=== PATIENT | male | born 1960 | race Caucasian/White ===

== ENCOUNTER 2018-01-08 10:35 | Emergency (ER) | payer SELFPAY ==
[2018-01-08] MEDS ORDERED: ASPIRIN 81 MG TABLET, CHEWABLE PO ONE (11:23)
--- NOTE | 2018-01-08 11:23 | ER Document Report ---
ED Medical Screen (RME) - General Chief Complaint: Shoulder Pain Stated Complaint: SHOULDER PAIN Time Seen by Provider: 01/08/18 11:11 Mode of Arrival: Ambulatory Information source: Patient Notes: Patient presents complaining of left axillary pain for the past 3 days. Patient states yesterday his pain went into his chest area. Patient denies any injury to the shoulder. Patient states that movement of the shoulder joint does not reproduce his pain symptoms. Patient's states that patient never goes to the doctor I have greeted and performed a rapid initial assessment of this patient. A comprehensive ED assessment and evaluation of the patient, analysis of test results and completion of the medical decision making process will be conducted by additional ED providers. TRAVEL OUTSIDE OF THE [place] IN LAST 30 DAYS: No Past Medical History Renal/ Medical History: Denies: Hx Peritoneal Dialysis Physical Exam - Vital signs Vitals: Temp Pulse Resp BP Pulse Ox 98.3 F 78 20 170/117 H 98 01/08/18 10:49 01/08/18 10:49 01/08/18 10:49 01/08/18 10:49 01/08/18 10:49 - Cardiovascular Rhythm: Regular Heart sounds: S1 appreciated, S2 appreciated - Extremities General upper extremity: Normal inspection, Nontender, Normal ROM Course - Vital Signs Vital signs: Temp Pulse Resp BP Pulse Ox 98.3 F 78 20 170/117 H 98 01/08/18 10:49 01/08/18 10:49 01/08/18 10:49 01/08/18 10:49 01/08/18 10:49
--- NOTE | 2018-01-08 12:05 | RADIOLOGY REPORT (SQ) ---
EXAM DESCRIPTION: CHEST 2 VIEWS COMPLETED DATE/TIME: 01/08/2018 11:54 am REASON FOR STUDY: L axillary, cp COMPARISON: None. EXAM PARAMETERS: NUMBER OF VIEWS: two views TECHNIQUE: Digital Frontal and Lateral radiographic views of the chest acquired. RADIATION DOSE: NA LIMITATIONS: none FINDINGS: LUNGS AND PLEURA: No opacities, masses or pneumothorax. No pleural effusion. MEDIASTINUM AND HILAR STRUCTURES: No masses or contour abnormalities. HEART AND VASCULAR STRUCTURES: Heart normal size. No evidence for failure. BONES: No acute findings. HARDWARE: None in the chest. OTHER: No other significant finding. IMPRESSION: NO ACUTE RADIOGRAPHIC FINDING IN THE CHEST. TECHNICAL DOCUMENTATION: JOB ID: [id number] [employer]- All Rights Reserved Reading location - IP/workstation name: [email or web address]
[2018-01-08] MEDS ORDERED: MORPHINE SULFATE 10 MG/ML INJ IV ONE (12:11)
[2018-01-08] MEDS ORDERED: DIAZEPAM 5 MG TABLET PO ONE (12:13)
[2018-01-08] MEDS ORDERED: PREDNISONE 20 MG TABLET PO ONE (12:13)
--- NOTE | 2018-01-08 12:14 | ER Document Report ---
ED General - General Chief Complaint: Chest Pain Stated Complaint: SHOULDER PAIN Time Seen by Provider: 01/08/18 11:11 Mode of Arrival: Ambulatory Information source: Patient, Relative Notes: 57-year-old male with no reported past medical history presents with complaint of left arm pain and left-sided chest pain. Patient states that left arm pain started 3 days prior to arrival. Pain is located in his axilla, described as a sharp throbbing pain that radiates into his chest. Patient states the pain has been constant for 3 days and he has been unable to sleep. Patient states that pain is relieved when he lifts his arm over his head. He has tried Tylenol and Motrin without relief. He denies any prior similar symptoms. 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 Patient does not currently take any medications. He does not smoke tobacco but admits to marijuana use. TRAVEL OUTSIDE OF THE [place] IN LAST 30 DAYS: No Past Medical History - General Information source: Patient - Social History Smoking Status: Never Smoker Frequency of alcohol use: None Drug Abuse: Marijuana Lives with: Spouse/Significant other Family History: Reviewed & Not Pertinent Patient has suicidal ideation: No Patient has homicidal ideation: No - Medical History Medical History: Negative Renal/ Medical History: Denies: Hx Peritoneal Dialysis Review of Systems - Review of Systems Notes: REVIEW OF SYSTEMS: CONSTITUTIONAL : Denies fever, chills, or sweats. Denies recent illness. Denies weight loss, recent hospitalizations. EENT: Denies visual changes, eye pain. Denies nasal or sinus congestion or discharge. Denies sore throat, oral lesions, difficulty swallowing. CARDIOVASCULAR: . Denies palpitations. Denies lower extremity edema. RESPIRATORY: Denies cough, cold, or chest congestion. Denies shortness of breath, wheezing. GASTROINTESTINAL: Denies abdominal pain or distention. Denies nausea, vomiting , or diarrhea. Denies blood in vomitus, stools, or per rectum. Denies black, tarry stools. Denies constipation. GENITOURINARY: Denies difficulty urinating, painful urination, frequency, blood in urine, or vaginal discharge. MUSCULOSKELETAL: Denies back or neck pain or stiffness. Denies joint pain or swelling. SKIN: Denies rash, lesions or sores. HEMATOLOGIC : Denies easy bruising or bleeding. LYMPHATIC: Denies swollen glands. NEUROLOGICAL: Denies confusion or altered mental status. Denies passing out or loss of consciousness. Denies dizziness or lightheadedness. Denies headache. Denies weakness or paralysis. Denies problems difficulty with ambulation, slurred speech. Denies sensory loss, numbness, or tingling. Denies seizures. PSYCHIATRIC: Denies anxiety or stress. Denies depression, suicidal ideation, or homicidal ideation. Denies visual or auditory hallucinations. Physical Exam - Vital signs Vitals: Temp Pulse Resp BP Pulse Ox 98.3 F 78 20 170/117 H 98 01/08/18 10:49 01/08/18 10:49 01/08/18 10:49 01/08/18 10:49 01/08/18 10:49 - Notes Notes: PHYSICAL EXAMINATION: GENERAL: Well-appearing, well-nourished and in no acute distress. HEAD: Atraumatic, normocephalic. EYES: Pupils equal round and reactive to light, extraocular movements intact, sclera anicteric, conjunctiva are normal. ENT: Nares patent, oropharynx clear without exudates. Moist mucous membranes. NECK: Normal range of motion, supple without lymphadenopathy LUNGS: Breath sounds clear to auscultation bilaterally and equal. No wheezes rales or rhonchi. HEART: Regular rate and rhythm without murmurs ABDOMEN: Soft, nontender, nondistended abdomen. No guarding, no rebound. No masses appreciated. Musculoskeletal: Normal range of motion, no pitting or edema. No cyanosis. Pain with palpation to the left axilla. Pain with range of motion of the left shoulder. No neuro deficits NEUROLOGICAL: Cranial nerves grossly intact. Normal speech, normal gait. Normal sensory, motor exams PSYCH: Normal mood, normal affect. SKIN: Warm, Dry, normal turgor, no rashes or lesions noted. Course - Re-evaluation Re-evalutation: Laboratory 01/08/18 01/08/18 01/08/18 11:50 11:50 11:50 WBC 9.7 RBC 5.15 Hgb 17.3 H Hct 50.3 MCV 98 H MCH 33.6 H MCHC 34.4 RDW 14.0 Plt Count 271 Seg Neutrophils % 54.7 Lymphocytes % 35.5 Monocytes % 8.1 Eosinophils % 1.1 Basophils % 0.6 Absolute Neutrophils 5.3 Absolute Lymphocytes 3.4 Absolute Monocytes 0.8 Absolute Eosinophils 0.1 Absolute Basophils 0.1 Sodium 144.1 Potassium 4.4 Chloride 107 Carbon Dioxide 22 Anion Gap 15 BUN 17 Creatinine 0.83 Est GFR ( Amer) > 60 Est GFR (Non-Af Amer) > 60 Glucose 149 H Calcium 10.5 H Total Bilirubin 1.6 H Direct Bilirubin 0.3 Neonat Total Bilirubin Not Reportable Neonat Direct Bilirubin Not Reportable Neonat Indirect Bili Not Reportable AST 23 ALT 22 Alkaline Phosphatase 59 Troponin I < 0.012 Total Protein 7.9 Albumin 4.9 Chest X-Ray 01/08/18 11:22 IMPRESSION: NO ACUTE RADIOGRAPHIC FINDING IN THE CHEST. 01/08/18 16:38 57-year-old male with no reported past medical history presents with complaint of left arm pain and left-sided chest pain. Patient states that left arm pain started 3 days prior to arrival. Pain is located in his axilla, described as a sharp throbbing pain that radiates into his chest. Patient states the pain has been constant for 3 days and he has been unable to sleep. Patient states that pain is relieved when he lifts his arm over his head. Upon arrival vitals reviewed, patient is afebrile, hypertensive. Patient does not appear toxic or dehydrated. He is in no acute distress. Pain is reproducible with palpation to his left axilla and range of motion of the left arm. EKG was obtained which showed the patient be in normal sinus rhythm. CBC is without leukocytosis or anemia. MP is without electrolyte abnormality and normal kidney function. Chest x-ray showed no acute process. Cardiac enzymes within normal limits. Heart score 2. Patient provided the opportunity to ask questions, and express concerns. Discharge instructions discussed. Patient is agreeable with discharge home. Return indications explained and discussed with the patient who displays understanding. Patient encouraged to return to the emergency department immediately with any concerns. After performing a Medical Screening Examination, I estimate there is LOW risk for RUPTURED ESOPHAGUS, PNEUMOTHORAX, PULMONARY EMBOLISM, ACUTE CORONARY SYNDROME, OR THORACIC AORTIC DISSECTION, thus I consider the discharge disposition reasonable. I have reevaluated this patient multiple times and no significant life threatening changes are noted. The patient and I have discussed the diagnosis and risks, and we agree with discharging home with close follow-up. We also discussed returning to the Emergency Department immediately if new or worsening symptoms occur. We have discussed the symptoms which are most concerning (e.g., bloody sputum, worsening pain or shortness of breath) that necessitate immediate return. - Vital Signs Vital signs: Temp Pulse Resp BP Pulse Ox 98.3 F 78 12 168/94 H 94 01/08/18 10:49 01/08/18 10:49 01/08/18 13:44 01/08/18 14:18 01/08/18 13:44 - Laboratory Result Diagrams: 01/08/18 11:50 01/08/18 11:50 Laboratory results interpreted by me: 01/08/18 01/08/18 11:50 11:50 Hgb 17.3 H MCV 98 H MCH 33.6 H Glucose 149 H Calcium 10.5 H Total Bilirubin 1.6 H - Diagnostic Test Radiology reviewed: Image reviewed, Reports reviewed - EKG Interpretation by Me EKG shows normal: Sinus rhythm Rate: Normal Rhythm: NSR When compared to previous EKG there are: Previous EKG unavailable Discharge - Discharge Clinical Impression: Left axillary pain, Chest wall pain, Elevated blood pressure reading Condition: Good Disposition: HOME, SELF-CARE Instructions: Arm Pain, Nonspecific ([facility]), Chest Wall Pain ([facility]) Additional Instructions: Follow up with your physician tomorrow for further care or return to the ED IMMEDIATELY if symptoms worsen or new concerns occur. If you cannot afford to follow up with your primary care physician a list of low cost clinics have been provided at the end of your discharge papers as well. Prescriptions: Hydrocodone/Acetaminophen [[place] 5-325 mg Tablet] 1 tab PO Q6H #15 tablet Ibuprofen [Motrin 600 Mg Tablet] 600 mg PO TID #15 tablet Prednisone 60 mg PO DAILY #15 tablet Forms: Elevated Blood Pressure
[2018-01-08 12:18] LABS: ABSOLUTE BASOPHILS # (AUTO) 0.1 10^3/uL (0.0-0.2); ABSOLUTE EOSINOPHILS # (AUTO) 0.1 10^3/uL (0.0-0.6); ABSOLUTE LYMPHOCYTES (AUTO) 3.4 10^3/uL (0.5-4.7); ABSOLUTE MONOCYTES (AUTO) 0.8 10^3/uL (0.1-1.4); ABSOLUTE NEUT (AUTO) 5.3 10^3/uL (1.7-8.2); BASOPHILS % (AUTO) 0.6 % (0-2); EOSINOPHILS % (AUTO) 1.1 % (0-6); HEMATOCRIT 50.3 % (37.9-51.0); HEMOGLOBIN 17.3 g/dL (13.5-17.0); LYMPHOCYTES % (AUTO) 35.5 % (13-45); MEAN CORPUSCULAR HEMOGLOBIN 33.6 pg (27.0-33.4); MEAN CORPUSCULAR HGB CONC 34.4 g/dL (32.0-36.0); MEAN CORPUSCULAR VOLUME 98 fl (80-97); MONOCYTES % (AUTO) 8.1 % (3-13); PLATELET COUNT 271 10^3/uL (150-450); RED BLOOD COUNT 5.15 10^6/uL (4.35-5.55); SEGMENTED NEUTROPHILS % (AUTO) 54.7 % (42-78); TOTAL CELLS COUNTED % (AUTO) 100 %; WHITE BLOOD COUNT 9.7 10^3/uL (4.0-10.5)
[2018-01-08 12:27] LABS: ALANINE AMINOTRANSFERASE 22 U/L (21-72); ALBUMIN 4.9 g/dL (3.5-5.0); ALKALINE PHOSPHATASE 59 U/L (38-126); ANION GAP 15 (5-19); ASPARTATE AMINO TRANSFERASE 23 U/L (17-59); BILIRUBIN,DIRECT 0.3 mg/dL (0.0-0.4); BILIRUBIN,TOTAL 1.6 mg/dL (0.2-1.3); BLOOD UREA NITROGEN 17 mg/dL (7-20); CALCIUM 10.5 mg/dL (8.4-10.2); CARBON DIOXIDE 22 mmol/L (22-30); CHLORIDE 107 mmol/L (98-107); GLUCOSE 149 mg/dL (75-110); POTASSIUM 4.4 mmol/L (3.6-5.0); SODIUM 144.1 mmol/L (137-145); TOTAL PROTEIN 7.9 g/dL (6.3-8.2)
--- NOTE | 2018-01-08 13:36 | EKG REPORT ---
SEVERITY:- OTHERWISE NORMAL ECG - SINUS RHYTHM VENTRICULAR PREMATURE COMPLEX : Confirmed by: Baltazar Juarez MD 08-Jan-2018 13:35:37
[2018-01-08 14:19] VITALS: BP 168/94
== END 2018-01-08 14:19 | disposition home or self-care (01) ==
LOC: ER 10:35
DX: M79.622 Pain in left upper arm (principal); R07.89 Other chest pain; R03.0 Elevated blood-pressure reading, without diagnosis of hypertension; F12.10 Cannabis abuse, uncomplicated
CPT/HCPCS: 93005; 99285; 96374; 36415; 85025; 80053; 84484; 71046; 93010; J2270; J7512